=== PATIENT | male | born 1980 | race Caucasian/White ===

== ENCOUNTER → 2016-11-19 | Outpatient (CLI) | payer BC ==
--- NOTE | 2016-11-20 08:53 | DI ---
LUMBAR SPINE SERIES, 11/19/2016 11:18 AM: Clinical History: Acute midline low back pain without sciatica. Previous Exam: None at this facility. Upright AP and lateral and upright lateral flexion and extension views are submitted. The vertebral b odies are of normal height and size. L5-S1 has mild disc space narrowing in the remaining disc spaces are of normal height. There is a minimal grade 1 reverse spondylolisthesis at L5-S1 and there is no instability noted with flexion and extension maneuvers. The pedicles and posterior elements are unrem arkable. Both SI joints are normal. Readin. Mild L5-S1 disc space narrowing with a minimal grade 1 reverse spondylolisthesis at L5-S1. The re mainder of the study is normal. 2. There is no instability noted at L5-S1 or at the remainder of the lumbar spine with flexion and e xtension maneuvers.
== END ==
LOC: ORTHO 11:25
PROVIDERS: ATTEND Physician Assistant
DX: M54.5 Low back pain (principal); M47.26 Other spondylosis with radiculopathy, lumbar region; M48.07 Spinal stenosis, lumbosacral region
CPT/HCPCS: 72110

== ENCOUNTER → 2017-01-28 | Outpatient (CLI) | payer BC ==
--- NOTE | 2017-01-28 12:16 | DI ---
MRI LUMBAR SPINE W/O CN,01/28/2017 10:56 AM: Clinical History: Low back pain with lumbar radiculopathy. Previous Exam: None at this facility. Findings: Multiplanar MR images are obtained through the lumbar spine without contrast. Bony alignment is anatomic. No fractures are seen. Marrow signal is preserved. The distal spinal cord is normal with a normal conus at the L1 level. The paraspinal musculature is unremarkable. Individual intervertebral disc spaces: L1/2: There is a small annular fissure without significant stenosis. L2/3: No significant stenosis. L3/4: No significant stenosis. L4/5: There is mild disc desiccation and a broad-based disc bulge with facet and ligamentum flavum hy pertrophy contributing to moderate right and mild left lateral recess stenosis. L5/S1: There is disc desiccation, and a disc extrusion measuring 13 mm from medial to lateral and ext ending posteriorly from the disc space 7 mm. This contacts the exiting L5 nerve root on the left and contributes to mild central canal stenosis. There is mild left neuroforaminal narrowing and mild righ t neuroforaminal narrowing. Impression: Large left paracentral through lateral recess disc extrusion on the left contacting the exiting left L5 nerve root, and causing mild bilateral neural foraminal narrowing.
== END ==
LOC: MRI 10:53
PROVIDERS: ATTEND Physician Assistant
DX: M47.27 Other spondylosis with radiculopathy, lumbosacral region (principal); M51.16 Intervertebral disc disorders with radiculopathy, lumbar region
CPT/HCPCS: 72148

== ENCOUNTER 2017-03-03 21:06 | Emergency (ER) | payer BC ==
[2017-03-03] MEDS ORDERED: LIDOCAINE HCL 1%/EPI 1:100,000 - 20 ML VIAL SUBCUT ONE (21:12)
[2017-03-03] MEDS ORDERED: LIDOCAINE HCL 1%/EPI 1:100,000 - 20 ML VIAL ONE (21:15)
[2017-03-03] MEDS ORDERED: DIPH,PERTUSS,TET(ADACEL) VAC/PF 0.5 ML (Tdap) IM ONE ×2 (21:18→21:21)
--- NOTE | 2017-03-03 21:25 | PDOC ---
Hand / Wrist Injury HPI - General Chief Complaint: Integumentary Stated Complaint: FISHING LURE STUCK IN LEFT THUMB Date Seen by Provider: 03/03/17 Time Seen by Provider: 21:23 - History of Present Illness Initial Comments: Patient's address 36-year-old gentleman who got a fishing hook stuck in his right thumb. Have you received a tetanus shot in the past 10 years?: No - Patient Home Medications Home Medications: Home Medications Cyclobenzaprine HCl 1 tab PO Q8H #30 tab 02/24/17 Hydrocodone Bit/Acetaminophen [Hydrocodon-Acetaminophen 5-325] 1 tab PO Q4H PRN 03/03/17 - Patient Allergies Allergies/Adverse Reactions: Allergies Allergy/AdvReac Type Severity Reaction Status Date / Time No Known Allergies Allergy Verified 03/03/17 21:09 Past Medical History - heen HEENT History: Denies History Additional HEENT History: WEARS GLASSES Cardiovascular History: Denies History Respiratory History: Denies History Gastrointestinal History: Denies History Genitourinary History: Denies History Endocrine History: Denies History Musculoskeletal History: Denies History Prosthesis or Implant: Yes (RIGHT HAND PLATE AND SCREWS) Neurological History: Denies History Blood Disorders: Denies History Psychiatric History: Depression, Anxiety Disorders History of Sexually Transmitted Diseases: No Cancer History: Denies History History of MDRO: No History of Other Communicable Diseases: No Alcohol Use: None Substance Use Type: None Previous Surgical History: Yes Type / Date of Surgery: T&A/ HAND SURGERY/WISDOM TEETH Anesthesia Reactions: No Malignant Hyperthermia: No Significant Family History: Heart disease Past Medical History Reviewed: Reviewed - No Changes Procedure - Additional Procedures Additional Procedures: Other ([place] removal: Patient's thumb was anesthetized with 1% lidocaine without epinephrine and with a quick jerking motion the fishhook was pulled out.) Patient Care Time - Estimated PCT Patient Care Time (In Minutes): 15 Vital Signs - VS Reviewed Vital Signs Reviewed: Yes Discharge Clinical Impression: Fish hook injury of finger Qualifiers: Encounter type: initial encounter Laterality: right Qualifier Code: (S69.91XA) Unspecified injury of right wrist, hand and finger(s), initial encounter Discharge Disposition: Discharged to Home Condition: Good Additional Instructions: Monitor site of puncture for signs of infection Return if significant signs of infection exists [id number] medications for discomfort Follow Up With: NONE,NONE [Primary Care Provider] -
[2017-03-03 21:34] VITALS: RESP 16; TEMP 97.6
== END 2017-03-03 21:43 | disposition home or self-care (01) ==
LOC: ER 21:06
DX: M79.5 Residual foreign body in soft tissue (principal); W45.8XXA Other foreign body or object entering through skin, initial encounter
CPT/HCPCS: 90471; 99282